=== PATIENT | male | born 1940 | race Caucasian/White ===

== ENCOUNTER 2016-11-24 05:52 | Inpatient (IN) | payer OTHER, MEDICARE ==
[~2016-11-24] VITALS: Ht 175.3 cm; Wt 57.0 kg
[~2016-11-24 05:52] MED LIST: ASPIR 8181 M1 PO; ATACAND HCT PO; BACLOFEN10 MG PO; CYANOCOBALAM1000 MCG PO; FENTANYL1 EA12 TD; FEOSOL325 MG PO; LEXAPRO10 MG PO; PAXIL10 MG PO; PERCOCET 10/1 TABLET PO; PRAVASTATIN SOD20 MG PO; PRILOSEC OTC20 MG PO; SKELAXIN800 MG PO; WELLBUTRIN XL300 MG PO
[2016-11-24 06:44] LABS: HEMATOCRIT 32.8 % (38.0-50.0); MCH 26.7 PG (29.0-34.0); MCHC 32.3 G/DL (30.0-36.0); MCV 82.6 FL (86-99); MEAN PLAT.VOLUME 9.8 uM^3 (9.0-12.4); PLATELET COUNT 559 K/uL (156-360); RBC DIS.WIDTH-CV 12.9 % (11.8-14.6); RBC DIS.WIDTH-SD 37.8 % (39-53); RED BLOOD COUNT 3.97 M/uL (4.00-5.50); WHITE BLOOD COUNT 12.9 K/uL (4.1-10.2)
[2016-11-24 07:17] LABS: ANION GAP 15 MEQ/L (2-14); CHLORIDE 94 MEQ/L (99-109); POTASSIUM 4.1 MEQ/L (3.7-5.4); SAMPLE HEMOLYSIS CHECK 0; SAMPLE ICTERIC CHECK 0; SAMPLE LIPEMIA CHECK 0; SODIUM 137 MEQ/L (136-147)
[2016-11-24 07:22] LABS: GFR ESTIMATE (CALCULATED) > 59 mL/min/; GLUCOSE 109 mg/dL (70-99); UREA NITROGEN (BUN) 11 mg/dL (9-23)
[2016-11-24 07:25] LABS: TROP-I INTERPRETATION NEGATIVE; TROPONIN-I < 0.01 ng/mL (0.0-0.30)
[2016-11-24 07:55] LABS: BILIRUBIN NEGATIVE; BLOOD NEGATIVE; COLOR DK YELLOW ((YELLOW)); GLUCOSE (STRIP) NEGATIVE; KETONES 15; LEUKOCYTES NEGATIVE; NITRITE NEGATIVE; PROTEIN (STRIP) 30; SPECIFIC GRAVITY 1.025 (1.000-1.030)
[2016-11-24 07:56] LABS: ADD MIUA? NO; UCUL ADDED? NO
[2016-11-24] MEDS ORDERED: DURAGESIC50 MCG TD (10:20)
[2016-11-24] MEDS ORDERED: PERCOCET 7.51 TABLET PO (10:22)
[2016-11-24] MEDS ORDERED: WELLBUTRIN SR150 MG PO (10:29)
[2016-11-24] MEDS ORDERED: STOOL SOFTENER100 MG PO (10:29)
[2016-11-24] MEDS ORDERED: AFRIN,GENASAL D15 ML BOTH NARES (10:30)
[2016-11-24] MEDS ORDERED: ZITHROMAX200 MG/5 M PO (10:33)
[2016-11-24] MEDS ORDERED: COMBIVENT RESPIM4 GM IH (10:36)
[2016-11-24 15:09] VITALS: BP 159/69
[2016-11-24 19:27] VITALS: BP 153/67
[2016-11-25 04:14] VITALS: BP 133/65
[2016-11-25 06:22] LABS: EOSINOPHIL (%) 0 % (0-5); LYMPHOCYTE COUNT 0.8 K/uL (1.0-2.8); MCH 25.8 PG (29.0-34.0); MCHC 31.1 G/DL (30.0-36.0); MCV 83.1 FL (86-99); MONOCYTE (%) 4.4 % (3-12); MONOCYTE COUNT 0.3 K/uL (0-0.8); NEUTROPHIL (%) 85.3 % (45-76); NEUTROPHIL COUNT 6.5 K/uL (1.8-6.4); PLATELET COUNT 415 K/uL (156-360); RBC DIS.WIDTH-CV 13.2 % (11.8-14.6); RBC DIS.WIDTH-SD 40.8 % (39-53); RED BLOOD COUNT 3.25 M/uL (4.00-5.50); WHITE BLOOD COUNT 7.6 K/uL (4.1-10.2)
[2016-11-25 06:43] LABS: ANION GAP 7 MEQ/L (2-14); CHLORIDE 102 MEQ/L (99-109); GFR ESTIMATE (CALCULATED) > 59 mL/min/; GLUCOSE 138 mg/dL (70-99); IRON 19 MCG/DL (35-150); POTASSIUM 4.7 MEQ/L (3.7-5.4); SAMPLE HEMOLYSIS CHECK 0; SAMPLE ICTERIC CHECK 0; SAMPLE LIPEMIA CHECK 0; SODIUM 136 MEQ/L (136-147); UREA NITROGEN (BUN) 13 mg/dL (9-23)
[2016-11-25 08:06] LABS: INTERNAL CONTROL VALID? YES
[2016-11-25 08:07] LABS: FERRITIN 315 NG/ML (22-322)
[2016-11-25 08:31] VITALS: BP 141/67
[2016-11-25 11:48] VITALS: BP 143/60
[2016-11-25 15:10] VITALS: BP 143/60
[2016-11-25 16:08] LABS: METH RESISTANT S AUREUS PCR NEGATIVE (NEGATIVE); PROBE CHECK PASS; SPECIMEN PROCESSING CONTROL PASS
[2016-11-25 20:00] VITALS: BP 126/89
[2016-11-25 23:58] VITALS: BP 117/56
[2016-11-26 04:26] VITALS: BP 145/67
[2016-11-26 08:41] VITALS: BP 134/66
[2016-11-26 11:42] VITALS: BP 147/64
[2016-11-26 16:05] VITALS: BP 149/56
[2016-11-26 19:45] VITALS: BP 133/88
[2016-11-27] VITALS (10 sets, daily range): BP systolic 142–169; BP diastolic 48–93
[2016-11-27 08:41] LABS: INTER. NORMALIZED RATIO 1.2; PROTHROMBIN TIME 12.5 (9.2-11.2); PTT 28.5 (25-32)
[2016-11-27 12:42] LABS: TYPE OF FLUID PLEURAL
[2016-11-27 14:23] LABS: BODY FLUID RBC'S 1000 /MM^3 (0-100)
[2016-11-27 14:24] LABS: BODY FLUID WBC'S 1976 /MM^3 (0-500)
[2016-11-27 14:26] LABS: BODY FLUID LDH 90 IU/L; BODY FLUID PROTEIN 3.7 G/DL
[2016-11-27 14:28] LABS: BODY FLUID EOSINOPHILS 2 % (0-25); MONO RAW COUNT 95; MONONUCLEAR WBC'S 95 %; POLY RAW COUNT 3; POLYNUCLEAR WBC'S 3 % (0-25)
[2016-11-28 08:00] VITALS: BP 164/70
[2016-11-28 12:07] VITALS: BP 170/79
[2016-11-28] MEDS ORDERED: PREDNISONE10 MG PO (13:09)
[2016-11-28] MEDS ORDERED: FERROUS SULFAT325 MG PO (13:09)
[2016-11-28] MEDS ORDERED: MUCINEX600 MG PO (13:09)
[2016-11-28] MEDS ORDERED: ADVAIR HFA120 INHALA IH (13:09)
[2016-11-28] MEDS ORDERED: ACIDOPHILUS LA1 EACH PO (13:09)
[2016-11-28] MEDS ORDERED: VIBRAMYCIN100 MG PO (13:09)
[2016-11-29] MEDS ORDERED: VIBRAMYCIN100 MG PO (21:31)
[2016-11-29] MEDS ORDERED: FEOSOL325 MG PO (21:33)
[2016-11-29] MEDS ORDERED: MUCINEX600 MG PO (21:45)
[2016-11-29] MEDS ORDERED: PREDNISONE10 MG PO ×2 (21:48→21:49)
[2016-11-29] MEDS ORDERED: B-121000 MC2 PO (21:50)
[2016-11-29] MEDS ORDERED: CENTRUM SILVER1 EAC3 PO (21:50)
[2016-11-29] MEDS ORDERED: ASPERCREME 1035.4 GM TP (21:50)
[2016-11-29] MEDS ORDERED: ELAVIL25 MG PO (21:51)
[2016-11-29] MEDS ORDERED: FLOMAX0.4 MG PO (21:52)
== END 2016-11-28 15:14 | disposition home or self-care (01) | DRG 178 ==
LOC: EME 05:52 → 5SOUTH 09:38 → EDOF 09:38 → 5SOUTH 14:43
PROVIDERS: Hospitalist; Internal Medicine; Internal Medicine Pulmonary Disease; Physician Assistant; Radiology Diagnostic Radiology
PROC: 0W993ZX Drainage of Right Pleural Cavity, Percutaneous Approach, Diagnostic (ICD-10-PCS; principal; 2016-11-27)
DX: J69.0 Pneumonitis due to inhalation of food and vomit (principal); J44.0 Chronic obstructive pulmonary disease with (acute) lower respiratory infection; J90 Pleural effusion, not elsewhere classified; E86.0 Dehydration; R13.12 Dysphagia, oropharyngeal phase; R19.7 Diarrhea, unspecified; D64.9 Anemia, unspecified; G89.29 Other chronic pain; M54.9 Dorsalgia, unspecified; E78.5 Hyperlipidemia, unspecified; I10 Essential (primary) hypertension; K21.9 Gastro-esophageal reflux disease without esophagitis; Z87.891 Personal history of nicotine dependence; Z85.118 Personal history of other malignant neoplasm of bronchus and lung; Z90.2 Acquired absence of lung [part of]
CPT/HCPCS: 71010; 71020; 71275; 73610; 74220; 74230; 80048; 81003; 82607; 82728; 82746; 82945; 83540; 83615; 83615 91; 84155; 84157; 84466; 84484; 85025; 85027; 85610; 85730; 87040; 87070; 87075; 87106; 87205; 87449; 87493; 87506; 87641; 88108; 88305; 89051; 92610 GN; 92611 GN; 93005; 94010; 94640; 94640 76; 94668; 99202; 99281; 99285; J0692; J1650; J3370; J7030; J7050; J7512

== ENCOUNTER 2016-11-29 18:45 | Inpatient (IN) | payer OTHER, MEDICARE ==
[~2016-11-29] VITALS: Ht 175.3 cm; Wt 56.5 kg
[~2016-11-29 18:45] MED LIST changes: +ACIDOPHILUS LA1 EACH PO; +ADVAIR HFA120 INHALA IH; +AFRIN,GENASAL D15 ML BOTH NARES; +COMBIVENT RESPIM4 GM IH; +DURAGESIC50 MCG TD; +FERROUS SULFAT325 MG PO; +MUCINEX600 MG PO; +PERCOCET 7.51 TABLET PO; +PREDNISONE10 MG PO; +STOOL SOFTENER100 MG PO; +VIBRAMYCIN100 MG PO; +WELLBUTRIN SR150 MG PO; +ZITHROMAX200 MG/5 M PO
[2016-11-29 19:49] LABS: MCH 26.4 PG (29.0-34.0); MCHC 31.8 G/DL (30.0-36.0); MCV 83.1 FL (86-99); MEAN PLAT.VOLUME 9.8 uM^3 (9.0-12.4); RBC DIS.WIDTH-CV 13.5 % (11.8-14.6); RBC DIS.WIDTH-SD 39.8 % (39-53); WHITE BLOOD COUNT 7.9 K/uL (4.1-10.2)
[2016-11-29 20:01] LABS: CHLORIDE 103 mEq/L (99-109); POTASSIUM 4.3 mEq/L (3.7-5.4); SODIUM 140 mEq/L (136-147)
[2016-11-29 20:02] LABS: GLUCOSE 122 mg/dL (70-99)
[2016-11-29 20:04] LABS: ANION GAP 13 MEQ/L (2-14)
[2016-11-29 20:06] LABS: GFR ESTIMATE (CALCULATED) > 59 mL/min/
[2016-11-29 20:07] LABS: UREA NITROGEN (BUN) 15 mg/dL (9-23)
[2016-11-29 20:16] LABS: TROP-I INTERPRETATION NEGATIVE; TROPONIN-I < 0.01 ng/mL (0.0-0.30)
[2016-11-29 20:22] LABS: PLATELET COUNT 614 K/uL (156-360); RED BLOOD COUNT 3.97 M/uL (4.00-5.50)
[2016-11-29 21:03] LABS: CARBON DIOXIDE (BICARBONATE) 31.8 MEQ/L (20-31)
[2016-11-29] MEDS ORDERED: VIBRAMYCIN100 MG PO (21:31)
[2016-11-29] MEDS ORDERED: FEOSOL325 MG PO (21:33)
[2016-11-29] MEDS ORDERED: MUCINEX600 MG PO (21:45)
[2016-11-29] MEDS ORDERED: PREDNISONE10 MG PO ×2 (21:48→21:49)
[2016-11-29] MEDS ORDERED: CENTRUM SILVER1 EAC3 PO (21:50)
[2016-11-29] MEDS ORDERED: ASPERCREME 1035.4 GM TP (21:50)
[2016-11-29] MEDS ORDERED: B-121000 MC2 PO (21:50)
[2016-11-29] MEDS ORDERED: ELAVIL25 MG PO (21:51)
[2016-11-29] MEDS ORDERED: FLOMAX0.4 MG PO (21:52)
[2016-11-29 22:34] VITALS: BP 177/78
[2016-11-30 00:20] LABS: ADD MIUA? NO; BILIRUBIN NEGATIVE; BLOOD NEGATIVE; COLOR YELLOW ((YELLOW)); GLUCOSE (STRIP) NEGATIVE; KETONES 15; LEUKOCYTES NEGATIVE; NITRITE NEGATIVE; PH, URINE 6.5 (5-8); PROTEIN (STRIP) TRACE; SPECIFIC GRAVITY 1.027 (1.000-1.030); UCUL ADDED? NO; UROBILINOGEN 0.2 MG/DL (0.2-1.0)
[2016-11-30 00:32] LABS: INFLUENZA A VIRAL ANTIGEN NEGATIVE; INFLUENZA B VIRAL ANTIGEN NEGATIVE
[2016-11-30 07:23] LABS: INTERNAL CONTROL VALID? YES
[2016-11-30 07:31] VITALS: BP 158/74
[2016-11-30 15:37] VITALS: BP 126/68
[2016-11-30 17:47] VITALS: BP 126/68
== END 2016-11-30 18:32 | disposition home or self-care (01) | DRG 392 ==
LOC: EME 18:45 → EDOF 21:13 → 5SOUTH 22:26
PROVIDERS: Emergency Medicine; Internal Medicine; Physician Assistant
DX: R13.10 Dysphagia, unspecified (principal); J44.9 Chronic obstructive pulmonary disease, unspecified; Z85.118 Personal history of other malignant neoplasm of bronchus and lung; Z87.891 Personal history of nicotine dependence
CPT/HCPCS: 71020; 80048; 81003; 82803; 83605; 83880; 84484; 85027; 87040; 87070; 87205; 87449; 87502; 92610 GN; 93005; 94640; 94640 76; 99202; 99281; 99285; J0456; J0692; J1644; J1940; J1956; J2270; J7030; J7050

== ENCOUNTER 2017-10-02 12:54 | Inpatient (IN) | payer OTHER, MEDICARE ==
[~2017-10-02] VITALS: Ht 177.8 cm; Wt 59.3 kg
[~2017-10-02 12:54] MED LIST changes: +ASPERCREME 1035.4 GM TP; +B-121000 MC2 PO; +CENTRUM SILVER1 EAC3 PO; +ELAVIL25 MG PO; +FLOMAX0.4 MG PO
[2017-10-02 14:12] LABS: BASOPHIL COUNT 0.1 K/uL (0-0.1); EOSINOPHIL (%) 9.4 % (0-5); EOSINOPHIL COUNT 0.8 K/uL (0-0.3); HEMATOCRIT 24.7 % (38.0-50.0); IMMATURE GRANULOCYTE (%) 0.6 % (0.0-0.7); IMMATURE GRANULOCYTE COUNT 0.1 K/uL; LYMPHOCYTE COUNT 0.8 K/uL (1.0-2.8); MCH 28.7 PG (29.0-34.0); MCHC 31.6 G/DL (30.0-36.0); MCV 90.8 FL (86-99); MONOCYTE (%) 7.2 % (3-12); MONOCYTE COUNT 0.6 K/uL (0-0.8); NEUTROPHIL (%) 72.6 % (45-76); PLATELET COUNT 305 K/uL (156-360); RBC DIS.WIDTH-CV 16.3 % (11.8-14.6); RBC DIS.WIDTH-SD 53.9 % (39-53); RED BLOOD COUNT 2.72 M/uL (4.00-5.50); WHITE BLOOD COUNT 8.3 K/uL (4.1-10.2)
[2017-10-02 14:21] LABS: CHLORIDE 99 mEq/L (99-109); SODIUM 135 mEq/L (136-147)
[2017-10-02 14:23] LABS: POTASSIUM 4.1 mEq/L (3.7-5.4)
[2017-10-02 14:24] LABS: GLUCOSE 100 mg/dL (70-99)
[2017-10-02 14:25] LABS: ANION GAP 11 MEQ/L (2-14)
[2017-10-02 14:26] LABS: TOTAL BILIRUBIN 0.8 mg/dL (0.0-1.0)
[2017-10-02 14:27] LABS: ALKALINE PHOSPHATASE 53 IU/L (3-129); GFR ESTIMATE (CALCULATED) > 59 mL/min/
[2017-10-02 14:28] LABS: UREA NITROGEN (BUN) 14 mg/dL (9-23)
[2017-10-02] MEDS ORDERED: MUCINEX DM ER1 EACH PO (15:00)
[2017-10-02] MEDS ORDERED: ASPERCREME 1035.4 GM TP (15:01)
[2017-10-02 16:39] VITALS: BP 159/76
[2017-10-02 17:41] LABS: ADD MIUA? NO; BILIRUBIN NEGATIVE; BLOOD NEGATIVE; COLOR STRAW ((YELLOW)); GLUCOSE (STRIP) NEGATIVE; KETONES NEGATIVE; LEUKOCYTES NEGATIVE; NITRITE NEGATIVE; PROTEIN (STRIP) NEGATIVE; UCUL ADDED? NO; UROBILINOGEN 0.2 MG/DL (0.2-1.0)
[2017-10-02 19:16] VITALS: BP 147/63
[2017-10-02 23:40] VITALS: BP 170/71
[2017-10-03 03:50] VITALS: BP 164/77
[2017-10-03 06:15] LABS: EOSINOPHIL (%) 11.7 % (0-5); EOSINOPHIL COUNT 0.8 K/uL (0-0.3); HEMATOCRIT 23.6 % (38.0-50.0); IMMATURE GRANULOCYTE (%) 0.4 % (0.0-0.7); INSTRUMENT ABS NEUTROPHIL CT 4.5 K/uL; LYMPHOCYTE COUNT 0.8 K/uL (1.0-2.8); MCH 28.6 PG (29.0-34.0); MCHC 30.9 G/DL (30.0-36.0); MCV 92.5 FL (86-99); MONOCYTE (%) 8.7 % (3-12); MONOCYTE COUNT 0.6 K/uL (0-0.8); NEUTROPHIL (%) 66.5 % (45-76); NEUTROPHIL COUNT 4.5 K/uL (1.8-6.4); PLATELET COUNT 273 K/uL (156-360); RBC DIS.WIDTH-CV 16.2 % (11.8-14.6); RBC DIS.WIDTH-SD 55.2 % (39-53); RED BLOOD COUNT 2.55 M/uL (4.00-5.50); WHITE BLOOD COUNT 6.7 K/uL (4.1-10.2)
[2017-10-03 06:39] LABS: ANION GAP 9 MEQ/L (2-14); CHLORIDE 102 MEQ/L (99-109); GFR ESTIMATE (CALCULATED) > 59 mL/min/; GLUCOSE 84 mg/dL (70-99); POTASSIUM 4.5 MEQ/L (3.7-5.4); SAMPLE HEMOLYSIS CHECK 0; SAMPLE ICTERIC CHECK 0; SAMPLE LIPEMIA CHECK 0; SODIUM 138 MEQ/L (136-147); UREA NITROGEN (BUN) 11 mg/dL (9-23)
[2017-10-03 07:14] VITALS: BP 144/67
[2017-10-03 07:42] LABS: INTERNAL CONTROL VALID? YES
[2017-10-03 11:41] VITALS: BP 127/59
[2017-10-03 15:06] VITALS: BP 134/62
[2017-10-03 19:27] VITALS: BP 159/70
[2017-10-03 23:41] VITALS: BP 142/65
[2017-10-04 07:54] VITALS: BP 149/76
[2017-10-04 08:31] LABS: EOSINOPHIL (%) 9.9 % (0-5); EOSINOPHIL COUNT 0.8 K/uL (0-0.3); HEMATOCRIT 22.1 % (38.0-50.0); IMMATURE GRANULOCYTE (%) 0.4 % (0.0-0.7); INSTRUMENT ABS NEUTROPHIL CT 5.5 K/uL; LYMPHOCYTE COUNT 0.8 K/uL (1.0-2.8); MCH 28.6 PG (29.0-34.0); MCHC 31.7 G/DL (30.0-36.0); MCV 90.2 FL (86-99); MEAN PLAT.VOLUME 9.9 uM^3 (9.0-12.4); MONOCYTE COUNT 0.5 K/uL (0-0.8); NEUTROPHIL (%) 72.4 % (45-76); NEUTROPHIL COUNT 5.5 K/uL (1.8-6.4); PLATELET COUNT 289 K/uL (156-360); RBC DIS.WIDTH-CV 15.9 % (11.8-14.6); RBC DIS.WIDTH-SD 52.9 % (39-53); RED BLOOD COUNT 2.45 M/uL (4.00-5.50); WHITE BLOOD COUNT 7.6 K/uL (4.1-10.2)
[2017-10-04 08:51] LABS: TROP-I INTERPRETATION NEGATIVE; TROPONIN-I < 0.01 ng/mL (0.0-0.30)
[2017-10-04 09:01] LABS: ANION GAP 9 MEQ/L (2-14); CHLORIDE 99 MEQ/L (99-109); GFR ESTIMATE (CALCULATED) > 59 mL/min/; GLUCOSE 102 mg/dL (70-99); POTASSIUM 3.8 MEQ/L (3.7-5.4); SAMPLE HEMOLYSIS CHECK 0; SAMPLE ICTERIC CHECK 0; SAMPLE LIPEMIA CHECK 0; SODIUM 134 MEQ/L (136-147); UREA NITROGEN (BUN) 11 mg/dL (9-23)
[2017-10-04 16:00] VITALS: BP 164/72
[2017-10-04 23:37] VITALS: BP 140/66
[2017-10-05] VITALS (7 sets, daily range): BP systolic 132–168; BP diastolic 63–79
[2017-10-05 07:09] LABS: EOSINOPHIL (%) 10.6 % (0-5); EOSINOPHIL COUNT 0.7 K/uL (0-0.3); HEMATOCRIT 22.1 % (38.0-50.0); IMMATURE GRANULOCYTE (%) 0.8 % (0.0-0.7); IMMATURE GRANULOCYTE COUNT 0.1 K/uL; INSTRUMENT ABS NEUTROPHIL CT 4.5 K/uL; LYMPHOCYTE COUNT 0.7 K/uL (1.0-2.8); MCH 28.5 PG (29.0-34.0); MCHC 31.2 G/DL (30.0-36.0); MCV 91.3 FL (86-99); MEAN PLAT.VOLUME 10.1 uM^3 (9.0-12.4); MONOCYTE (%) 8.3 % (3-12); MONOCYTE COUNT 0.5 K/uL (0-0.8); NEUTROPHIL (%) 68.7 % (45-76); NEUTROPHIL COUNT 4.5 K/uL (1.8-6.4); PLATELET COUNT 299 K/uL (156-360); RBC DIS.WIDTH-CV 15.9 % (11.8-14.6); RBC DIS.WIDTH-SD 53.3 % (39-53); RED BLOOD COUNT 2.42 M/uL (4.00-5.50); WHITE BLOOD COUNT 6.5 K/uL (4.1-10.2)
[2017-10-05 07:16] LABS: ANION GAP 10 MEQ/L (2-14); CHLORIDE 101 MEQ/L (99-109); GFR ESTIMATE (CALCULATED) > 59 mL/min/; GLUCOSE 81 mg/dL (70-99); POTASSIUM 4.1 MEQ/L (3.7-5.4); SAMPLE HEMOLYSIS CHECK 0; SAMPLE ICTERIC CHECK 0; SAMPLE LIPEMIA CHECK 0; SODIUM 138 MEQ/L (136-147); UREA NITROGEN (BUN) 11 mg/dL (9-23)
[2017-10-05 10:55] LABS: INTERNAL CONTROL VALID? YES
[2017-10-06 00:39] VITALS: BP 149/70
[2017-10-06 01:35] VITALS: BP 152/72
[2017-10-06 06:56] LABS: HEMATOCRIT 29.4 % (38.0-50.0); MCH 28.7 PG (29.0-34.0); MCHC 32.7 G/DL (30.0-36.0); MCV 87.8 FL (86-99); PLATELET COUNT 322 K/uL (156-360); RBC DIS.WIDTH-CV 17.2 % (11.8-14.6); RBC DIS.WIDTH-SD 55.1 % (39-53); WHITE BLOOD COUNT 7.8 K/uL (4.1-10.2)
[2017-10-06 06:57] LABS: RED BLOOD COUNT 3.35 M/uL (4.00-5.50)
[2017-10-06 07:12] VITALS: BP 142/67
[2017-10-06 15:14] VITALS: BP 154/96
[2017-10-06 16:01] LABS: INTER. NORMALIZED RATIO 1.4; PROTHROMBIN TIME 15.7 SEC (10.2-12.9)
[2017-10-06 16:04] LABS: PTT 27.6 SEC (25-37)
[2017-10-06 16:43] LABS: GLUCOSE 92 mg/dL (70-99); LACTATE DEHYDROGENASE 269 IU/L (20-246)
[2017-10-06 16:55] LABS: TYPE OF FLUID THORACENTESIS
[2017-10-06 17:12] LABS: BODY FLUID RBC'S 15000 /MM^3 (0-100); BODY FLUID WBC'S 650 /MM^3 (0-500)
[2017-10-06 17:42] LABS: BODY FLUID LDH 305 IU/L; BODY FLUID PROTEIN < 3.0 G/DL
[2017-10-06 18:01] LABS: BODY FLUID EOSINOPHILS 4 % (0-25); MONONUCLEAR WBC'S 83 %; POLYNUCLEAR WBC'S 13 % (0-25)
[2017-10-06 23:54] VITALS: BP 147/73
[2017-10-07 07:10] VITALS: BP 138/85
[2017-10-07] MEDS ORDERED: AMOX TR-K CLV1 EAC4 PO (10:29)
[2017-10-07] MEDS ORDERED: AMLODIPINE BESYL5 MG PO (10:30)
[2017-10-07] MEDS ORDERED: SPIRIVA RESPIMAT4 GM IH (10:31)
[2017-10-10 23:47] LABS: BODY FLUID PH 7.7 (())
== END 2017-10-07 11:54 | disposition home or self-care (01) | DRG 193 ==
LOC: EME 12:54 → EDOF 14:17 → 5SOUTH 14:17 → ENRESERV 14:34 → 5SOUTH 16:22 → ENPENDDIS 10-07 → 5SOUTH 10-07 11:54
PROVIDERS: Hospitalist; Internal Medicine; Internal Medicine Hematology & Oncology; Internal Medicine Pulmonary Disease; Physician Assistant; Radiology Diagnostic Radiology
PROC: 30233N1 Transfusion of Nonautologous Red Blood Cells into Peripheral Vein, Percutaneous Approach (ICD-10-PCS; principal; 2017-10-05)
PROC: 0W993ZZ Drainage of Right Pleural Cavity, Percutaneous Approach (ICD-10-PCS; 2017-10-06)
DX: J18.9 Pneumonia, unspecified organism (principal); Y95 Nosocomial condition; C34.31 Malignant neoplasm of lower lobe, right bronchus or lung; J44.1 Chronic obstructive pulmonary disease with (acute) exacerbation; E43 Unspecified severe protein-calorie malnutrition; D64.81 Anemia due to antineoplastic chemotherapy; T45.1X5A Adverse effect of antineoplastic and immunosuppressive drugs, initial encounter; J90 Pleural effusion, not elsewhere classified; K21.9 Gastro-esophageal reflux disease without esophagitis; I10 Essential (primary) hypertension; F32.9 Major depressive disorder, single episode, unspecified; G62.9 Polyneuropathy, unspecified; G89.29 Other chronic pain; Z66 Do not resuscitate; Z79.82 Long term (current) use of aspirin; Z87.891 Personal history of nicotine dependence; Z79.891 Long term (current) use of opiate analgesic; Z90.2 Acquired absence of lung [part of]
CPT/HCPCS: 36415; 71010; 71275; 74230; 76942; 80048; 80053; 80202; 81003; 82272; 82945; 82947; 83605; 83615; 83615 91; 83986 90; 84155; 84157; 84484; 85025; 85027; 85379; 85610; 85730; 86850; 86900; 86901; 86920; 87040; 87070; 87075; 87116; 87205; 87206; 87449; 88108; 88305; 89051; 92610 GN; 92611 GN; 93005; 94010; 94640; 94640 76; 94760; 94799; 99202; 99281; 99285; J0456; J0696; J1650; J2405; J2543; J3370; J7030; J7050; P9016; Q0167

== ENCOUNTER 2018-07-01 08:48 | Emergency (ER) | payer OTHER, MEDICARE ==
[~2018-07-01] VITALS: Ht 180.3 cm; Wt 69.5 kg
[~2018-07-01 08:48] MED LIST changes: +AMLODIPINE BESYL5 MG PO; +AMOX TR-K CLV1 EAC4 PO; +MUCINEX DM ER1 EACH PO; +SPIRIVA RESPIMAT4 GM IH
[2018-07-01 09:29] LABS: HEMATOCRIT 35.3 % (38.0-50.0); HEMOGLOBIN 11.4 G/DL (12.5-16.6); MCH 28.8 PG (29.0-34.0); MCHC 32.3 G/DL (30.0-36.0); MCV 89.1 FL (86-99); PLATELET COUNT 254 K/uL (156-360); RBC DIS.WIDTH-CV 13.9 % (11.8-14.6); RBC DIS.WIDTH-SD 45.1 % (39-53); RED BLOOD COUNT 3.96 M/uL (4.00-5.50); WHITE BLOOD COUNT 9.6 K/uL (4.1-10.2)
[2018-07-01 09:40] LABS: CHLORIDE 105 mEq/L (99-109); POTASSIUM 4.8 mEq/L (3.7-5.4); SODIUM 142 mEq/L (136-147)
[2018-07-01 09:41] LABS: GLUCOSE 98 mg/dL (70-99)
[2018-07-01 09:45] LABS: CREATININE 1.2 mg/dL (0.6-1.3); GFR ESTIMATE (CALCULATED) > 59 mL/min/ (58.99-99999)
[2018-07-01 09:46] LABS: UREA NITROGEN (BUN) 20 mg/dL (9-23)
[2018-07-01 10:52] LABS: TROP-I INTERPRETATION NEGATIVE; TROPONIN-I < 0.01 ng/mL (0.0-0.30)
[2018-07-01 13:47] VITALS: BP 143/74
== END 2018-07-01 13:48 | disposition home or self-care (01) ==
LOC: EME 08:48
DX: R06.02 Shortness of breath (principal); R07.9 Chest pain, unspecified; Z85.118 Personal history of other malignant neoplasm of bronchus and lung; J44.9 Chronic obstructive pulmonary disease, unspecified; K21.9 Gastro-esophageal reflux disease without esophagitis; I10 Essential (primary) hypertension; F32.9 Major depressive disorder, single episode, unspecified; Z87.891 Personal history of nicotine dependence; Z92.21 Personal history of antineoplastic chemotherapy; Z79.82 Long term (current) use of aspirin
CPT/HCPCS: 71046; 71275; 80048; 83880; 84484; 85027; 93005; 99281; 99285